=== PATIENT | male | born 1955 | race Caucasian/White ===

== ENCOUNTER 2020-04-16 11:30 | Emergency (ER) | payer MEDICARE, OTHER ==
[2020-04-16] MEDS ORDERED: Sodium Chloride 0.9% 10 ML Syringe FLUSH PRN (11:50)
[2020-04-16] MEDS: Aspirin 81 MG Tab.Chew PO ONE ×2 (12:02→12:38)
[2020-04-16] MEDS ORDERED: Nitroglycerin 0.4 MG Tab.SL SL PRN (12:03)
--- NOTE | 2020-04-16 12:19 | EDM.PDOC ---
ED HPI GENERAL MEDICAL PROBLEM - General Chief Complaint: Chest Pain Stated Complaint: chest pain and covid symptoms Time Seen by Provider: 04/16/20 11:50 Source of Information: Reports: Patient History Limitations: Reports: No Limitations - History of Present Illness INITIAL COMMENTS - FREE TEXT/NARRATIVE: Patient presents to ER with complaints of midsternal chest pain this am. States was working on a project and developed sharp sudden pain in the chest that lasted approximately 30 minutes. He took 2 aspirin after it started and is now pain free. He has been feeling more short of breath lately. Does have a cough. No fevers. History of indigestion but states this pain felt much different. Admits to nausea. Has diarrhea but states that is chronic for him. Has not had any known COVID exposures. 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 Had radiation for this and is now cancer free. Admits has weakness in his legs as a result of that. Also has tremors which he relates is controlled with dilantin. Onset: Today, Sudden Duration: Minutes:, Resolved Prior to Arrival Location: Reports: Chest Quality: Reports: Ache Severity: Severe Improves with: Reports: Medication Worsens with: Reports: None Associated Symptoms: Reports: Chest Pain, Cough, Nausea/Vomiting, Shortness of Breath. 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 Middle Anterior Chest Pain Score (Numeric/FACES): 1 - Related Data Allergies Allergy/AdvReac Type Severity Reaction Status Date / Time No Known Allergies Allergy Verified 04/01/19 14:19 Home Meds: Home Meds Acetaminophen [Tylenol Extra Strength] 500 mg PO Q6H PRN 08/07/16 [History] Aspirin 325 mg PO DAILY 08/07/16 [History] B12/Levomefolate Calcium/B-6 [Folbic Rf Tablet] 1 tab PO DAILY 08/07/16 [History] Cetirizine HCl [Zyrtec] 10 mg PO DAILY 08/07/16 [History] Fish Oil/Howard-3 Fatty Acids [Fish Oil 1,000 MG] 1 cap PO DAILY 08/07/16 [History] Fluticasone Propionate [Flonase] 2 spray JAME DAILY PRN 08/07/16 [History] Hydrocodone/Acetaminophen [[place] 5-325] 1 - 2 tab PO Q6HR PRN 08/07/16 [History] Naproxen [Naprosyn] 500 mg PO DAILY PRN 08/07/16 [History] Testosterone Cypionate [Depo-Testosterone] 1 ml IM Q30D 08/07/16 [History] Ergocalciferol (Vitamin D2) [Vitamin D2] 2,000 units PO DAILY 04/01/19 [History] Magnesium 500 mg PO DAILY 04/01/19 [History] Phenytoin Sodium Extended [Dilantin] 400 mg PO BEDTIME 04/01/19 [History] Past Medical History Respiratory History: Reports: COPD Genitourinary History: Reports: BPH Neurological History: Reports: Migraines, Seizure Oncologic (Cancer) History: Reports: Lung, Metastatic - Past Surgical History GI Surgical History: Reports: Cholecystectomy Social & Family History - Family History Family Medical History: Noncontributory - Caffeine Use Caffeine Use: Reports: Coffee ED ROS GENERAL - Review of Systems Review Of Systems: See Below Constitutional: Reports: Malaise. Denies: Fever, Chills, Weakness, Fatigue, Decreased Appetite HEENT: Denies: Ear Pain, Sinus Problem, Throat Pain, Vertigo Respiratory: Reports: Shortness of Breath, Cough Cardiovascular: Reports: Chest Pain, Edema. Denies: Lightheadedness Endocrine: Denies: Fatigue GI/Abdominal: Reports: Diarrhea, Nausea. Denies: Abdominal Pain, Constipation, Vomiting : Reports: No Symptoms Musculoskeletal: Reports: No Symptoms Skin: Reports: No Symptoms Neurological: Reports: No Symptoms Psychiatric: Reports: No Symptoms ED EXAM, GENERAL - Physical Exam Exam: See Below Exam Limited By: No Limitations General Appearance: Alert, WD/WN, No Apparent Distress Ears: Normal External Exam, Normal TMs Nose: Normal Inspection, Normal Mucosa, No Blood Throat/Mouth: Normal Inspection, Normal Oropharynx Head: Normocephalic Neck: Normal Inspection, Supple, Non-Tender Respiratory/Chest: No Respiratory Distress, Lungs Clear, Normal Breath Sounds Cardiovascular: Regular Rate, Rhythm GI/Abdominal: Normal Bowel Sounds, Soft, Non-Tender Extremities: Normal Inspection, Pedal Edema (1+) Neurological: Alert, Oriented Skin Exam: Warm, Dry Course - Vital Signs Last Recorded V/S: Last Vital Signs Temp 98.3 F 04/16/20 12:13 Pulse 81 04/16/20 12:13 Resp 18 04/16/20 12:13 BP 145/87 H 04/16/20 12:13 Pulse Ox 96 04/16/20 12:13 - Orders/Labs/Meds Orders: Active Orders 24 hr Category Date Time Status Cardiac Monitoring [RC] . DIRECTED Care 04/16/20 11:50 Active EKG Documentation Completion [RC] STAT Care 04/16/20 11:51 Active Chest 2V [CR] Stat Exams 04/16/20 11:51 Taken INR,PT,PROTHROMBIN TIME [COAG] Stat Lab 04/16/20 12:05 Received PTT,PARTIAL THROMBOPLSTIN TIME [COAG] Stat Lab 04/16/20 12:05 Received Nitroglycerin [Nitrostat] Med 04/16/20 12:03 Active 0.4 mg SL Q5M PRN Sodium Chloride 0.9% [Saline Flush] Med 04/16/20 11:50 Active 10 ml FLUSH ASDIRECTED PRN Saline Lock Insert [OM.PC] Stat Oth 04/16/20 11:50 Ordered Resuscitation Status Routine Resus Stat 04/16/20 11:50 Ordered Medication Orders Nitroglycerin (Nitrostat) 0.4 mg SL Q5M PRN PRN Reason: Chest Pain Sodium Chloride (Saline Flush) 10 ml FLUSH ASDIRECTED PRN PRN Reason: Keep Vein Open Labs: Laboratory Tests 04/16/20 04/16/20 04/16/20 Range/Units 11:55 12:05 12:05 WBC 6.9 (5.0-10.0) 10^3/uL RBC 4.80 (4.50-6.00) 10^6/uL Hgb 14.6 (14.0-18.0) g/dL Hct 42.7 (40.0-54.0) % MCV 89.0 (82.0-94.0) fL MCH 30.4 (27.0-32.0) pg MCHC 34.2 (33.0-38.0) g/dL RDW Coeff of Jaden 13.0 (11.0-15.0) % Plt Count 199 (150-400) 10^3/uL Neut % (Auto) 59.7 (35-85) % Lymph % (Auto) 23.3 (10-55) % Tyrrell % (Auto) 12.7 (0-16) % Eos % (Auto) 3.7 (0-5) % Baso % (Auto) 0.6 (0-3) % Neut # (Auto) 4.14 (1.80-7.00) 10^3/uL Lymph # (Auto) 1.62 (1.00-4.80) 10^3/uL Tyrrell # (Auto) 0.88 H (0.00-0.80) 10^3/uL Eos # (Auto) 0.26 (0.00-0.45) 10^3/uL Baso # (Auto) 0.04 10^3/uL Sodium 139 (136-145) mEq/L Potassium 3.9 (3.5-5.0) mEq/L Chloride 104 (98-106) mEq/L Carbon Dioxide 26 (21-32) mmol/L BUN 17 (7-18) mg/dL Creatinine 1.1 (0.7-1.3) mg/dL Est Cr Clr Drug Dosing 76.42 mL/min Estimated GFR (MDRD) > 60 (>=60) mL/min Glucose 92 (75-99) mg/dL Calcium 8.8 (8.4-10.1) mg/dL Creatine Kinase 163 (35-232) U/L Troponin I < 0.017 (0.00-0.06) ng/mL C-Reactive Protein 0.2 (0.2-0.8) mg/dL SARS CoV-2 RNA Rapid JEREMIAS Negative (NEGATIVE) Meds: Medications Generic Name Dose Route Start Last Admin Trade Name Freq PRN Reason Stop Dose Admin Nitroglycerin 0.4 mg 04/16/20 12:03 Nitrostat SL Q5M PRN Chest Pain Sodium Chloride 10 ml 04/16/20 11:50 Saline Flush FLUSH ASDIRECTED PRN Keep Vein Open Discontinued Medications Generic Name Dose Route Start Last Admin Trade Name Freq PRN Reason Stop Dose Admin Aspirin 324 mg 04/16/20 11:50 04/16/20 12:02 Aspirin PO 04/16/20 11:51 324 mg ONETIME ONE Administration - Re-Assessments/Exams Free Text/Narrative Re-Assessment/Exam: 04/16/20 12:22 EKG normal sinus rhythm. COVID negative 04/16/20 12:34 Labs are all normal. Chest xray appears clear. Discussed results with patient. Does follow with Dr. Mclaughlin. Advised should see him this week and arrange for possible stress test to better evaluate the heart as well. He believes he had a stress test back in 2016 while he was in rehab after his stroke. Departure - Departure Time of Disposition: 12:35 Disposition: Home, Self-Care 01 Condition: Good Clinical Impression: Acute angina Instructions: Nonspecific Chest Pain, Adult, [id number], Angina, [id number] Referrals: Elbert Mclaughlin MD [Ordering Only Provider] - (See Dr. Mclaughlin this week, discuss possible stress test ) Forms: ED Department Discharge Additional Instructions: 1. Rest 2. Return to ER if develop recurring chest pains 3. Follow up with Dr. Mclaughlin this week to discuss possible stress test Sepsis Event Note (ED) - Evaluation Sepsis Screening Result: No Definite Risk - Focused Exam Vital Signs: Vital Signs Temp Pulse Resp BP Pulse Ox 04/16/20 12:13 98.3 F 81 18 145/87 H 96 04/16/20 11:51 98.4 F 79 20 134/88 94 L - My Orders Last 24 Hours: My Active Orders 04/16/20 11:50 Cardiac Monitoring [RC] . DIRECTED Sodium Chloride 0.9% [Saline Flush] 10 ml FLUSH ASDIRECTED PRN Saline Lock Insert [OM.PC] Stat Resuscitation Status Routine 04/16/20 11:51 EKG Documentation Completion [RC] STAT Chest 2V [CR] Stat 04/16/20 12:03 Nitroglycerin [Nitrostat] 0.4 mg SL Q5M PRN 04/16/20 12:05 INR,PT,PROTHROMBIN TIME [COAG] Stat PTT,PARTIAL THROMBOPLSTIN TIME [COAG] Stat - Assessment/Plan Last 24 Hours: My Active Orders 04/16/20 11:50 Cardiac Monitoring [RC] . DIRECTED Sodium Chloride 0.9% [Saline Flush] 10 ml FLUSH ASDIRECTED PRN Saline Lock Insert [OM.PC] Stat Resuscitation Status Routine 04/16/20 11:51 EKG Documentation Completion [RC] STAT Chest 2V [CR] Stat 04/16/20 12:03 Nitroglycerin [Nitrostat] 0.4 mg SL Q5M PRN 04/16/20 12:05 INR,PT,PROTHROMBIN TIME [COAG] Stat PTT,PARTIAL THROMBOPLSTIN TIME [COAG] Stat
[2020-04-16 12:29] LABS: CHLORIDE,CL 104 mEq/L (98-106); SODIUM,NA 139 mEq/L (136-145)
[2020-04-16 12:38] LABS: PTT,PARTIAL THROMBOPLSTIN TIME 22.1 SEC (23.2-32.3)
[2020-04-16 12:39] VITALS: BP 145/90; PULSE 84
== END 2020-04-16 12:54 | disposition home or self-care (01) ==
LOC: CC.ED 11:30
DX: I20.9 Angina pectoris, unspecified (principal); J44.9 Chronic obstructive pulmonary disease, unspecified; Z20.828 Contact with and (suspected) exposure to other viral communicable diseases; Z79.82 Long term (current) use of aspirin; Z79.899 Other long term (current) drug therapy
CPT/HCPCS: 36415; 71046; 80048; 82550; 84484; 85025; 85610; 85730; 86140; 93005; 99285; U0002; A9270-GY